=== PATIENT | female | born 1950 | race Caucasian/White ===

== ENCOUNTER 2018-09-10 09:35 | Observation (INO) ==
[2018-09-10] MEDS ORDERED: NS 500 ML IV ONE (10:07)
[2018-09-10] MEDS ORDERED: ASPIRIN PO ONE (10:07)
--- NOTE | 2018-09-10 10:13 | PROVIDER DOCUMENTATION ---
HPI-Chest Pain - General Chief Complaint: Chest Pain Stated Complaint: CHEST PAIN,BACK PAIN Time Seen by Provider: 09/10/18 09:46 Source: patient Allergies/Adverse Reactions: Patient Allergies Allergy/AdvReac Type Severity Reaction Status Date / Time No Known Allergies Allergy Verified 09/10/18 12:54 - History of Present Illness-CP Nature of Presenting Problem: She is being tx by PCP in [place] for pneumonia, with abx, breathing tx. For past few days, has been having intermitent substernal CP, sharp, that rad straight through to back, Nothing makes better nor worse. Pain lasts for 2-3 min. However, has had diaphoresis, SOB with it. Pain began being more freq, lasting longer, and this AM, lasted up to 10 min, assoc with some nausea, radiation to R neck. Has not noticed any palpitations. has never seen comb fixer. Does not smoke. Has HTN, diabetes Review of Systems - Adult - REVIEW OF SYSTEMS - ADULT Constitutional: reports: no symptoms reported Eyes: reports: no symptoms reported Ears, Nose, Mouth & Throat: reports: no symptoms reported Cardiovascular: reports: see HPI Respiratory: reports: see HPI Gastrointestinal: reports: see HPI Genitourinary: reports: no symptoms reported Musculoskeletal: reports: no symptoms reported Integumentary: reports: no symptoms reported Neurological: reports: no symptoms reported Psychiatric: reports: no symptoms reported Endocrine: reports: no symptoms reported Hematologic/Lymphatic: reports: no symptoms reported Allergic/Immunologic: reports: no symptoms reported Past History - Adult - PAST MEDICAL HISTORY-ADULT Review of Records: reports: Medications Reviewed Cardiovascular: reports: HTN Respiratory: reports: pneumonia Gastrointestinal: reports: denies history Genitourinary: reports: denies history Musculoskeletal: reports: denies history Neurological: reports: denies history Psychiatric: reports: denies history Endocrine/Immune: reports: Diabetes Diabetes Type: Type 1 - SOCIAL HISTORY Smoking: denies Physical Exam-General - PHYSICAL EXAM-ADULT Initial Vital Signs Reviewed: Yes - CONSTITUTIONAL General Appearance: appears well, alert, mild distress - EYES Eyes: PERRL/EOMI, pink conjunctivae - HEAD, EARS, NOSE, MOUTH & THROAT HENMT: normocephalic/atraumatic, moist mucous membranes, normal ENT inspection, pharynx normal - NECK Neck: full range of motion, supple, normal inspection - RESPIRATORY Respiratory: lungs clear, normal breath sounds, no pleuratic chest pain, no respiratory distress, no accessory muscle use - CARDIOVASCULAR Cardiovascular: no edema, no gallop, no murmur, tachycardia - GASTROINTESTINAL (ABDOMEN) Abdominal Exam: non tender, soft - MUSCULOSKELETAL Back Exam: normal inspection, no CVA tenderness, no vertebral tenderness Extremity: normal range of motion, non-tender, normal inspection, no pedal edema - SKIN Integumentary: normal color, normal turgor, warm/dry - NEUROLOGIC 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: 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 nml as tested, grossly normal, no motor/sensory deficits - PSYCHIATRIC Psych/Mental Status: normal mood/affect, normal thought content, normal thought process, oriented x 3 - HEART Score HEART Score: History: Moderately Suspicious HEART Score: ECG: Non-Specific Repolarization Disturbance/LBBB/PM HEART Score: Age: > or = 65 Years HEART Score: Risk Factors for Atherosclerotic Disease: 1 or 2 Risk Factors HEART Score: Troponin: < or = Normal Limit Total HEART Score:: 5 Progress - PLAN OF CARE/RESULTS Progress/Plan/Lab Results: Vital Signs - 8 hr 09/10/18 09:41 Temperature 98.2 F Pulse Rate 123 H Respiratory Rate 22 Blood Pressure 168/87 O2 Sat by Pulse Oximetry 94 L Laboratory Results - last 24 hr 09/10/18 09/10/18 09/10/18 10:28 10:28 10:28 WBC 11.69 H RBC 4.97 Hgb 14.5 Hct 42.0 MCV 84.5 MCH 29.2 MCHC 34.5 RDW Std Deviation 13.0 Plt Count 236 MPV 9.4 Immature Gran % (Auto) 0.9 H Neut % (Auto) 53.8 Lymph % (Auto) 33.6 [place] % (Auto) 8.9 Eos % (Auto) 2.5 Baso % (Auto) 0.3 Immature Gran # (Auto) 0.11 H Neut # (Auto) 6.29 Lymph # (Auto) 3.93 H [place] # (Auto) 1.04 H Eos # (Auto) 0.29 Baso # (Auto) 0.03 Sodium 140 Potassium 3.2 L Chloride 101 Carbon Dioxide 26 Anion Gap 13 BUN 21 Creatinine 0.9 Estimated GFR/1.73 m2 > 60 BUN/Creatinine Ratio 23 Glucose 190 H POC Glucose Calculated Osmolality 287 Calcium 10.0 Magnesium 1.6 Total Bilirubin 0.23 AST 19 ALT 26 Alkaline Phosphatase 46 Creatine Kinase 34 Troponin T < 0.010 Total Protein 6.7 Albumin 4.1 Globulin 2.6 Albumin/Globulin Ratio 1.6 09/10/18 09/10/18 09/10/18 12:31 12:31 12:41 WBC RBC Hgb Hct MCV MCH MCHC RDW Std Deviation Plt Count MPV Immature Gran % (Auto) Neut % (Auto) Lymph % (Auto) [place] % (Auto) Eos % (Auto) Baso % (Auto) Immature Gran # (Auto) Neut # (Auto) Lymph # (Auto) [place] # (Auto) Eos # (Auto) Baso # (Auto) Sodium Potassium Chloride Carbon Dioxide Anion Gap BUN Creatinine Estimated GFR/1.73 m2 BUN/Creatinine Ratio Glucose POC Glucose 121 H Calculated Osmolality Calcium Magnesium Total Bilirubin AST ALT Alkaline Phosphatase Creatine Kinase 33 Troponin T < 0.010 Total Protein Albumin Globulin Albumin/Globulin Ratio Orders Category Date Time Status CHEST-1 VIEW [RAD] Stat Exams 09/10/18 10:05 Completed CBC WITH DIFF [HEME] Stat Lab 09/10/18 10:28 Completed CK PROFILE [SP CHEM] Stat Lab 09/10/18 10:28 Completed COMPREHENSIVE METABOLIC PANEL [CHEM] Stat Lab 09/10/18 10:28 Completed Cardiac Profile [CK PROFILE] [SP CHEM] Stat Lab 09/10/18 12:31 Completed MAGNESIUM [CHEM] Stat Lab 09/10/18 10:28 Completed TROPONIN T Stat Lab 09/10/18 10:28 Completed TROPONIN T Stat Lab 09/10/18 12:26 Ordered TROPONIN T Stat Lab 09/10/18 12:31 Completed 0.9% Sodium Chloride Inj [Ns] 500 ml Med 09/10/18 10:07 Discontinued IV 999 mls/hr Aspirin Med 09/10/18 10:07 Discontinued 324 mg PO NOW ONE Result Diagrams: 09/10/18 10:28 09/10/18 10:28 - EKG 1 Time of EKG reading by physician:: 09:43 EKG Read and Signed by:: Chito Peguero EKG Interpretation (*Must complete 3 of following elements*): Abnormal Rate: 122 Rhythm: sinus tach [place]: normal QRS: poor R wave progression, LVH ST Wave: non-specific ST changes Comments: bi atrial enlargement - CONSULTS/PCP/HOSPITALIST Notification #1 *Consult/PCP/Hospitalist*: Summer lyndsey Lynn Time Discussed: 14:40 Consult Disposition: Will see in ED, Admit Departure - Departure Date of Disposition Decision: 09/10/18 Time of Disposition Decision: 14:46 DIAGNOSIS: Chest pain Qualifiers: Chest pain type: unspecified Qualified Code(s): R07.9 - Chest pain, unspecified Disposition: ADMITTED INPATIENT 09 Certified Medical Emergency: Emergent Condition: Good Referrals and Follow-Ups: None,PCP [Primary Care Provider] - - Critical Care Note This patient required my direct & personal management of CC.: No Attestation - Physician/ VELIA Attestation Patient care was provided by Advanced Practice Provider:: No The physician spent face to face time with patient:: Yes Advanced Practice Provider documentation review:: Supervising physician onsite and consulted in the evaluation and care of this patient. The physician did have a face to face encounter with the patient.
[2018-09-10 10:43] LABS: BASO# 0.03 X1000 (0.0-0.2); BASO% 0.3 % (0.0-0.8); EOS# 0.29 X1000 (0.0-0.7); EOS% 2.5 % (0.0-10.0); HEMOGLOBIN 14.5 g/dL (12.0-16.0); IMM GRAN# 0.11 X1000 (0.0-0.04); IMM GRAN% 0.9 % (0.0-0.5); LYMPH# 3.93 X1000 (1.2-3.4); LYMPH% 33.6 % (20.5-51.1); MCH 29.2 PG (27-31); MCHC 34.5 g/dL (33-37); MCV 84.5 FL (81-99); MONO# 1.04 X1000 (0.11-0.59); MONO% 8.9 % (1.7-9.3); MPV 9.4 FL (7.4-10.4); NEUT# 6.29 X1000 (1.4-6.5); NEUT% 53.8 % (42.2-75.2); PLT 236 X1000 (130-400); RBC 4.97 XMIL (4.2-5.4); WBC 11.69 X1000 (4.8-10.8)
--- NOTE | 2018-09-10 10:49 | Diag Imaging Result Doc PS360 ---
EXAM: CHEST-1 VIEW 09/10/2018 HISTORY: CP/SOB TECHNIQUE: AP portable at 1041 COMMENT: There are bilaterally calcified breast implants. The heart size and pulmonary vascularity are within normal limits. There is no evidence of acute cardiac or pulmonary disease. There are no previous studies. IMPRESSION: No evidence of acute disease. Electronically signed by Yosef Joe 09/10/2018 10:47 AM
[2018-09-10 10:59] LABS: AGAP 13; ALB/GLOB RATIO 1.6; ALBUMIN 4.1 g/dL (3.5-5.0); ALKALINE PHOSPHATASE 46 U/L (32-104); BUN 21 mg/dL (8-22); CHLORIDE 101 mmol/L (98-107); CK PROFILE 34 U/L (24-173); COSMO 287; CREATININE 0.9 mg/dL (0.5-0.9); ESTIMATED GFR > 60; GLUCOSE 190 mg/dL (70-104); GOT 19 U/L (10-30); GPT 26 U/L (10-36); MAGNESIUM 1.6 mg/dL (1.5-2.7); POTASSIUM 3.2 mmol/L (3.5-5.1); SODIUM 140 mmol/L (136-145); TCO2 26 mmol/L (25-35); TOTAL BILIRUBIN 0.23 mg/dL (0.20-1.00); TOTAL PROTEIN 6.7 g/dL (6.3-8.3)
--- NOTE | 2018-09-10 14:14 | ED EKG INTERP ---
This chart was entered by Reena Mann Scribe, acting as scribe for Chito Peguero MD. EKG Interpretation - EKG Time of EKG reading by physician:: 12:48 EKG Read and Signed by:: Chito Peguero EKG Interpretation (*Must complete 3 of following elements*): Abnormal Rate: 92 Rhythm: nsr [place]: normal QRS: LVH (with repolarization abnormality) SD Interval: normal ST Wave: normal Attestation - Physician/ VELIA Attestation Patient care was provided by Advanced Practice Provider:: No The physician spent face to face time with patient:: Yes Advanced Practice Provider documentation review:: Supervising physician onsite and consulted in the evaluation and care of this patient. The physician did have a face to face encounter with the patient. This chart was documented by the indicated scribe, (Reena Mann Scribe) and accurately reflects the services I performed and decisions made by me, Chito Peguero MD, as attested by the provider's signature.
[2018-09-10] MEDS ORDERED: NITROGLYCERIN SL PRN (15:12)
[2018-09-10] MEDS ORDERED: ZOFRAN IV PRN (15:12)
[2018-09-10] MEDS ORDERED: TYLENOL PO PRN (15:12)
[2018-09-10] MEDS ORDERED: LOVENOX SUBQ SCH (15:15)
[2018-09-10] MEDS ORDERED: MORPHINE IV PRN (15:18)
[2018-09-10] MEDS ORDERED: KLOR-CON PO ONE (16:04)
[2018-09-10] MEDS ORDERED: DUONEB (A & A) ONE (16:25)
[2018-09-10] MEDS: APRESOLINE IV SCH (16:47)
--- NOTE | 2018-09-10 18:23 | HISTORY AND PHYSICAL ---
PRIMARY CARE PROVIDER: Silvia Cornejo in [place], [place]. CHIEF COMPLAINT: Chest pain. HISTORY OF PRESENT ILLNESS: Ms Silva is a 68-year-old female who is visiting her stepson that lives here. She is from [place]. The patient states that she started having chest pain last p.m. midsternal to right shoulder and back area that came and went. The pain is sharp. The patient states she was having some nausea and some dyspnea with this chest pain. The patient states that by this a.m. the pain had gotten worse and was radiating down the left arm and was then causing numbness to the left arm. The patient states that she has had a cough because she had bronchopneumonia a month ago and was treated by her automotive engineer with breathing treatments and antibiotics. The patient states she still has a cough and this pain in her chest is worse when she takes a deep breath and coughs. The patient states that she does have some tenderness and pain to the chest wall and down the arm area and into the shoulder and back area on the left side upon palpation. The patient states she has never had this pain before and never had shortness of breath or nausea like this before. The patient has no past medical history of any heart disease. She is significant for diabetes, hypertension and hyperlipidemia. She has never seen a infrastructure architect and has never had a cardiac workup. The patient states she is still a little nauseous at this time and that her arm is still a little numb in the elbow and the hand area. The patient denies any vomiting or any other pain besides the chest pain. The patient states she does have chronic headaches though and does not really take anything for those headaches. PAST MEDICAL HISTORY: Diabetes, hypertension, hyperlipidemia, depression, GERD, chronic headaches, bronchopneumonia 1 month ago treated with breathing treatments and antibiotics. PAST SURGICAL HISTORY: Appendectomy, tonsillectomy, complete hysterectomy. FAMILY HISTORY: Significant for diabetes in 1 parent and all her siblings. SOCIAL HISTORY: The patient lives in [place]. She is retired. She was newly a year ago and is here visiting her stepson here in [place]. She denies any smoking, alcohol or drug abuse. ALLERGIES: Patient is allergic to penicillin. MEDICATIONS: Lantus 40 units at bedtime, Humalog 25 to 30 units before meals, potassium at bedtime, Zoloft 100 mg p.o. q.a.m., patient states she takes some kind of medication for her GERD and also takes a topical estradiol cream p.r.n. LABS AND DIAGNOSTICS: White blood cell count 11.69, hemoglobin 14.5, hematocrit 42.0, platelet count 236,000. Sodium is 140, potassium is 3.2, chloride is 101, carbon dioxide is 26, BUN 21, creatinine 0.9, estimated GFR is greater than 60, glucose is 190, calcium 10, magnesium is 1.6, total bilirubin is 0.23, AST is 19, ALT is 26, alkaline phosphatase 46, creatine kinase 33. Troponin is less than 0.01, ProBNP is 32. Chest x-ray shows no evidence of any acute disease. EKG shows normal sinus rhythm with a rate of 92. REVIEW OF SYSTEMS: A 12 point review of systems was performed. All are negative except that what is stated above in HPI. PHYSICAL EXAMINATION: VITAL SIGNS: Temperature 98.2 degrees, pulse rate 123, respiratory rate 22, blood pressure 168/87, O2 saturation 94% on room air, weight 113 pounds, height 4 feet 8. GENERAL: This is a 68-year-old female who is lying in the ER stretcher. She is in no acute distress. She is well nourished and well developed. HEENT: Atraumatic, normocephalic. Pupils are equal, round, react to light. Mucous membranes are moist. NECK: Supple. No lymphadenopathy. Trachea is midline. No JVD. CV: Regular rate and rhythm. No murmurs, gallops, or rubs appreciated. RESPIRATORY: Lung sounds are clear with equal chest excursion. Respirations are nonlabored with no accessory muscle usage. ABDOMEN: Soft, nontender, nondistended. Bowel sounds are present. NEURO: The patient is awake, alert, oriented. Follows all commands. Cranial nerves intact. MUSCULOSKELETAL: Full distal strength noted. No abnormalities, no deformities. EXTREMITIES: No clubbing, cyanosis or edema. DP and PT pulses are present and palpable. SKIN: Warm, dry and intact. No rashes, bruises or turgor diaphoresis noted. The patient does have tenderness to the left chest area and the left shoulder and arm area when palpated. ASSESSMENT: 1. Rule out Acute coronary syndrome possibly costochondritis 2. Bronchitis. 3. Diabetes. 4. Hypertension. 5. Hyperlipidemia. 6. Depression. 7. Gastroesophageal reflux disease. PLAN: Will admit this patient to the CIC unit. Place this patient on telemetry monitoring and closely monitor this patient. Perform serial EKG, CK and troponins. Obtain echocardiogram. Repeat chest x-ray and labs in the a.m. Start this patient on healthy heart diet. Restart home medications. All other recommendations are per the automotive engineer. Patient seen and examined by me face to face, all the laboratory, vitals signs and images were reviewed, patient presented to the ED with chest pain, sternal area radiated to her back, first set of troponin negative, no EKG changes, has a history of DM, hypertension and hyperlipidemia, she will be admitted and observe overnight, she has tenderness to palpation in the middle of her chest that actually improved with aspirin given in the ER, I agree with the BUFFERER's assessment and plan, Jonathan Rodgers MD Dictated by TINA Chavez for Jonathan Benoit MD cc: Jonathan Benoit MD MTDD
[2018-09-10 18:28] LABS: AGAP 16; BUN 16 mg/dL (8-22); CALCIUM 9.2 mg/dL (8.8-10.2); CHLORIDE 102 mmol/L (98-107); COSMO 286; CREATININE 0.8 mg/dL (0.5-0.9); ESTIMATED GFR > 60; GLUCOSE 193 mg/dL (70-104); MAGNESIUM 1.5 mg/dL (1.5-2.7); POTASSIUM 3.5 mmol/L (3.5-5.1); SODIUM 140 mmol/L (136-145); TCO2 22 mmol/L (25-35)
[2018-09-10] MEDS: DUONEB (A & A) INH SCH (20:03)
[2018-09-10] MEDS: NORVASC PO SCH (20:32)
[2018-09-10] MEDS: HUMALOG SUBQ SCH (20:33)
[2018-09-10] MEDS ORDERED: LANTUS INSULIN SUBQ SCH (21:00)
[2018-09-10] MEDS ORDERED: ZOCOR PO SCH (21:00)
[2018-09-11] MEDS: APRESOLINE IV SCH ×3 (00:55→10:58)
[2018-09-11] MEDS: DUONEB (A & A) INH SCH ×2 (03:36→09:00)
[2018-09-11] MEDS: HUMALOG SUBQ SCH ×2 (06:22→10:59)
[2018-09-11] MEDS ORDERED: PRILOSEC PO SCH (07:00)
--- NOTE | 2018-09-11 07:03 | Diag Imaging Result Doc PS360 ---
EXAM: CHEST-PORTABLE 09/11/2018 HISTORY: Chest Pain TECHNIQUE: AP portable at 0554 COMMENT: The appearance of the chest has not changed significantly since 09/10/2018. IMPRESSION: Stable chest. Electronically signed by Yosef Joe 09/11/2018 7:01 AM
[2018-09-11 08:07] LABS: BASO# 0.03 X1000 (0.0-0.2); BASO% 0.3 % (0.0-0.8); EOS# 0.23 X1000 (0.0-0.7); EOS% 2.3 % (0.0-10.0); HEMATOCRIT 41.7 % (37.0-47.0); HEMOGLOBIN 13.9 g/dL (12.0-16.0); IMM GRAN# 0.07 X1000 (0.0-0.04); IMM GRAN% 0.7 % (0.0-0.5); LYMPH# 3.22 X1000 (1.2-3.4); MCH 28.8 PG (27-31); MCHC 33.3 g/dL (33-37); MCV 86.5 FL (81-99); MONO# 0.78 X1000 (0.11-0.59); MONO% 7.8 % (1.7-9.3); MPV 9.5 FL (7.4-10.4); NEUT# 5.73 X1000 (1.4-6.5); NEUT% 56.9 % (42.2-75.2); PLT 218 X1000 (130-400); RBC 4.82 XMIL (4.2-5.4); RDW 13.3 % (11.5-14.5); WBC 10.06 X1000 (4.8-10.8)
[2018-09-11 08:21] LABS: INR 0.95; PROTIME 13.4 Seconds (11.0-16.0)
[2018-09-11 08:24] LABS: HEMOGLOBIN A1C 9.5 % (4.8-6.0)
[2018-09-11 08:35] LABS: AGAP 15; BUN 15 mg/dL (8-22); CHLORIDE 104 mmol/L (98-107); COSMO 283; CREATININE 0.7 mg/dL (0.5-0.9); ESTIMATED GFR > 60; GLUCOSE 183 mg/dL (70-104); POTASSIUM 3.5 mmol/L (3.5-5.1); SODIUM 139 mmol/L (136-145); TCO2 20 mmol/L (25-35)
[2018-09-11] MEDS: NORVASC PO SCH (08:38)
[2018-09-11] MEDS ORDERED: ZOLOFT PO SCH (09:00)
[2018-09-11] MEDS ORDERED: KLOR-CON PO SCH (09:00)
[2018-09-11] MEDS ORDERED: ASPIRIN PO SCH ×2 (09:00)
[2018-09-11 10:50] VITALS: BP 148/69
--- NOTE | 2018-09-11 11:52 | DISCHARGE SUMMARY ---
ADMISSION DATE: 09/10/2018 DISCHARGE DATE: 09/11/2018 ADMITTING DIAGNOSES: 1. Acute coronary syndrome versus costochondritis. 2. Bronchitis. 3. Diabetes. 4. Hypertension. 5. Hyperlipidemia. 6. Depression. 7. Gastroesophageal reflux disease. DISCHARGE DIAGNOSES: 1. Costochondritis. 2. Bronchitis. 3. Uncontrolled Diabetes. 4. Hypertension. 5. Hyperlipidemia. 6. Depression. 7. Gastroesophageal reflux disease. PROCEDURES AND FINDINGS: Chest x-ray on 09/11/2018 shows stable chest. Chest x-ray on 09/10/2018 shows no evidence of acute disease. EKG performed on 09/10/2018 shows normal sinus rhythm with a rate of 92. HOSPITAL COURSE: Ms. Silva is a 68-year-old, female who presented to the ER yesterday. The patient lives in [place]. States that she was having chest pain along the midsternal to right shoulder and back area that came and went. The patient stated that she had dyspnea and nausea with this chest pain. The pain was radiating down her left arm and causing numbness into the left hand area. The chest area was very tender to palpation. The patient stated that she had a cough because she had bronchopneumonia a month ago, was treated with breathing treatments and antibiotics. The patient still has a cough and the chest pain is worse when she coughs. Also, the chest is painful when she takes deep breaths. The patient was admitted to the CIC unit. Serial EKGs, troponins and cardiac enzymes were obtained. All enzymes were subsequently negative. The patient is being discharged home today with self care, will follow up with customs consultant. PAST MEDICAL HISTORY: Diabetes, hypertension, hyperlipidemia, depression, GERD, chronic headaches, bronchopneumonia a month ago, appendectomy, tonsillectomy, and complete hysterectomy. SOCIAL HISTORY: The patient lives in [place] and is visiting her stepson here in [place]. DISCHARGE LAB DATA: Sodium 139, potassium 3.5, carbon dioxide 20, BUN 15, creatinine 0.7, GFR greater than 60, glucose is 183, hemoglobin A1c is 9.5, calcium is 9.0. Creatine kinase 27, troponin is less than 0.01. Triglycerides 198, cholesterol 205, LDL 130, VLDL 40, HDL 68. Chest x-ray and EKG all were normal. DISCHARGE MEDICATIONS: Humalog insulin 30 units subcutaneous t.i.d. before meals, Lantus 40 units subcutaneously at bedtime, Norvasc 10 mg p.o. daily, potassium chloride 10 mEq p.o. daily, simvastatin 10 mg p.o. at bedtime, Zoloft 100 mg p.o. daily, aspirin 81 mg p.o. daily, Tylenol 650 mg p.o. q.6 hours p.r.n. Prescriptions for aspirin 81 mg p.o. daily and Tylenol 650 mg p.o. q.6 hours p.r.n. were given to patient. DISCHARGE DIET: Resume diabetic diet as tolerated. DISCHARGE ACTIVITY: Resume normal activity as tolerated. DISPOSITION AND OTHER DISCHARGE INSTRUCTIONS: The patient is to discharge home today with self care. The patient needs to follow up with her customs consultant. Prescriptions for aspirin and Tylenol were given to patient. Dictated by TINA Chavez for Jonathan Benoit MD cc: Jonathan Benoit MD MTDD
--- NOTE | 2018-09-12 08:13 | EKG Report ---
Test Performed on : 09/10/2018 12:33:43 PM Test Reason : REPEAT Blood Pressure : / mmHG Vent. Rate : 092 BPM Atrial Rate : 092 BPM P-R Int : 158 ms QRS Dur : 076 ms QT Int : 364 ms P-R-T Axes : 055 004 073 degrees QTc Int : 450 ms Normal sinus rhythm. Possible Left atrial enlargement Left ventricular hypertrophy with repolarization abnormality Abnormal ECG When compared with ECG of 10-SEP-2018 09:41, (Unconfirmed) No significant change was found Unconfirmed Result
--- NOTE | 2018-09-12 09:46 | EKG Report ---
Test Performed on : 09/10/2018 09:41:28 AM Test Reason : ED. NO EKG ORDER FOR MUSE Blood Pressure : / mmHG Vent. Rate : 122 BPM Atrial Rate : 122 BPM P-R Int : 154 ms QRS Dur : 070 ms QT Int : 322 ms P-R-T Axes : 067 011 078 degrees QTc Int : 458 ms Sinus tachycardia. Biatrial enlargement Left ventricular hypertrophy with repolarization abnormality Cannot rule out Septal infarct , age undetermined Abnormal ECG No previous ECGs available Unconfirmed Result
== END 2018-09-11 13:11 | disposition home or self-care (01) ==
LOC: 3S 09:35 → ED 09:35
PROVIDERS: ATTEND Internal Medicine
CPT/HCPCS: 71010; 71045; 80048; 80053; 80061; 82550; 82948; 83036; 83721; 83735; 83880; 84484; 85025; 85610; 93005; 93306; 94640; 94760; A9270; J0360; J1650; J1815; J7040; XXXXX